=== PATIENT | male | born 1965 | race Caucasian/White ===

== ENCOUNTER 2020-12-26 13:54 | Emergency (ER) | payer BC | END 2020-12-26 16:39 | disposition short-term general hospital (02) | LOC: MADERS 13:54 | DX: R33.9 Retention of urine, unspecified (principal); R39.198 Other difficulties with micturition; N40.1 Benign prostatic hyperplasia with lower urinary tract symptoms; Z86.73 Personal history of transient ischemic attack (TIA), and cerebral infarction without residual deficits | CPT/HCPCS: 51702 ==